=== PATIENT | female | born 1945 | race Native Hawaiian/Other Pacific Islander ===

== ENCOUNTER 2016-09-23 11:39 | Outpatient (CLI) | payer OTHER ==
[2016-09-23 12:24] LABS: PLATELET COUNT 256 K/uL (152-353)
[2016-09-23 12:43] LABS: POTASSIUM 4.2 mmol/L (3.6-5.2)
== END 2016-09-23 19:16 | disposition home or self-care (01) ==
LOC: LAB 11:39
PROVIDERS: Specialist
DX: I10 Essential (primary) hypertension (principal); E03.8 Other specified hypothyroidism; K21.9 Gastro-esophageal reflux disease without esophagitis; E78.4 Other hyperlipidemia
CPT/HCPCS: 80053; 80061; 84439; 84443; 85027

== ENCOUNTER 2017-05-12 10:50 | Outpatient (CLI) | payer OTHER ==
[2017-05-12 11:12] LABS: PLATELET COUNT 264 K/uL (152-353)
[2017-05-12 11:37] LABS: POTASSIUM 3.4 mmol/L (3.6-5.2)
== END 2017-05-12 11:50 | disposition home or self-care (01) ==
LOC: LAB 10:50
PROVIDERS: General Practice
DX: K21.9 Gastro-esophageal reflux disease without esophagitis (principal); E03.8 Other specified hypothyroidism; I10 Essential (primary) hypertension; E55.9 Vitamin D deficiency, unspecified; E56.8 Deficiency of other vitamins; E78.4 Other hyperlipidemia
CPT/HCPCS: 80053; 80061; 82652; 84439; 84443; 85027

== ENCOUNTER 2017-11-18 10:46 | Outpatient (CLI) | payer OTHER ==
[2017-11-18 11:10] LABS: PLATELET COUNT 280 K/uL (152-353)
[2017-11-18 11:36] LABS: POTASSIUM 3.9 mmol/L (3.6-5.2)
== END 2017-11-18 21:47 | disposition home or self-care (01) ==
LOC: LAB 10:46
PROVIDERS: Specialist
DX: I10 Essential (primary) hypertension (principal); E03.8 Other specified hypothyroidism; R53.83 Other fatigue; E78.4 Other hyperlipidemia
CPT/HCPCS: 80053; 80061; 84439; 84443; 85027

== ENCOUNTER 2018-06-22 10:46 | Outpatient (CLI) | payer OTHER ==
[2018-06-22 11:02] LABS: PLATELET COUNT 254 K/uL (152-353)
[2018-06-22 11:03] LABS: POTASSIUM 3.8 mmol/L (3.6-5.2)
== END 2018-06-22 22:42 | disposition home or self-care (01) ==
LOC: LAB 10:46
PROVIDERS: General Practice
DX: I10 Essential (primary) hypertension (principal); E03.8 Other specified hypothyroidism; K21.9 Gastro-esophageal reflux disease without esophagitis
CPT/HCPCS: 80053; 80061; 84439; 84443; 85027

== ENCOUNTER 2018-07-10 11:42 | Emergency (ER) | payer OTHER ==
[~2018-07-10] VITALS: Ht 162.6 cm; Wt 95.3 kg
[2018-07-10 11:50] VITALS: TEMP 97.3
[2018-07-10] MEDS ORDERED: NIFE30TA PO (12:00)
[2018-07-10] MEDS ORDERED: LYRICA50 MG PO (12:00)
[2018-07-10] MEDS ORDERED: BUPR150T PO (12:01)
[2018-07-10 13:22] VITALS: BP 148/70
== END 2018-07-10 13:22 | disposition home or self-care (01) ==
LOC: ED 11:42
DX: M79.671 Pain in right foot (principal); W10.8XXA Fall (on) (from) other stairs and steps, initial encounter; Y92.89 Other specified places as the place of occurrence of the external cause
CPT/HCPCS: 99282

== ENCOUNTER 2018-10-12 14:11 | Outpatient (CLI) | payer OTHER ==
[~2018-10-12 14:11] MED LIST: BUPR150T PO; LYRICA50 MG PO; NIFE30TA PO
== END 2018-10-12 20:46 | disposition home or self-care (01) ==
LOC: LAB 14:11
DX: K64.0 First degree hemorrhoids (principal)
CPT/HCPCS: 82272

== ENCOUNTER 2018-12-14 15:27 | Outpatient (CLI) | payer OTHER | END 2018-12-14 21:09 | disposition home or self-care (01) | LOC: LAB 15:27 | DX: N39.0 Urinary tract infection, site not specified (principal) | CPT/HCPCS: 81000; 87086; 87088 ==

== ENCOUNTER 2018-12-21 10:50 | Outpatient (CLI) | payer OTHER ==
[2018-12-21 11:40] LABS: PLATELET COUNT 230 K/uL (152-353)
[2018-12-21 12:42] LABS: POTASSIUM 4.1 mmol/L (3.6-5.2)
== END 2018-12-21 23:46 | disposition home or self-care (01) ==
LOC: LAB 10:50
PROVIDERS: General Practice
DX: I10 Essential (primary) hypertension (principal); K21.9 Gastro-esophageal reflux disease without esophagitis; M79.7 Fibromyalgia
CPT/HCPCS: 80053; 80061; 84439; 84443; 85027

== ENCOUNTER 2019-02-04 21:40 | Outpatient (CLI) | payer OTHER | END 2019-02-04 21:43 | disposition short-term general hospital (02) | LOC: AMB 21:40 | DX: R22.43 Localized swelling, mass and lump, lower limb, bilateral (principal); R53.1 Weakness; W18.39XA Other fall on same level, initial encounter; Y92.321 Football field as the place of occurrence of the external cause | CPT/HCPCS: A0425; A0429 ==

== ENCOUNTER 2019-02-04 21:53 | Emergency (ER) | payer OTHER ==
[~2019-02-04] VITALS: Ht 162.6 cm; Wt 95.3 kg
[2019-02-04 21:53] VITALS: TEMP 99
[2019-02-04 23:03] VITALS: BP 152/74
== END 2019-02-04 23:05 | disposition home or self-care (01) ==
LOC: ED 21:53
PROC: 2W3DX1Z Immobilization of Left Lower Arm using Splint (ICD-10-PCS; principal; 2019-02-04)
DX: S52.592A Other fractures of lower end of left radius, initial encounter for closed fracture (principal); S09.8XXA Other specified injuries of head, initial encounter; W03.XXXA Other fall on same level due to collision with another person, initial encounter; Y92.39 Other specified sports and athletic area as the place of occurrence of the external cause
CPT/HCPCS: 99283

== ENCOUNTER 2019-08-31 08:37 | Outpatient (CLI) | payer OTHER ==
[2019-08-31 09:38] LABS: POTASSIUM 4.4 mmol/L (3.6-5.2)
[2019-08-31 09:45] LABS: PLATELET COUNT 287 K/uL (152-353)
== END 2019-08-31 19:27 | disposition home or self-care (01) ==
LOC: LAB 08:37
PROVIDERS: General Practice
DX: I10 Essential (primary) hypertension (principal); E03.8 Other specified hypothyroidism; K21.9 Gastro-esophageal reflux disease without esophagitis; E78.2 Mixed hyperlipidemia
CPT/HCPCS: 36415; 80053; 80061; 84439; 84443; 85027

== ENCOUNTER 2019-11-09 11:46 | Outpatient (CLI) | payer OTHER | END 2019-11-09 19:26 | disposition home or self-care (01) | LOC: LAB 11:46 | DX: E03.8 Other specified hypothyroidism (principal) | CPT/HCPCS: 84439; 84443 ==

== ENCOUNTER 2020-03-27 09:49 | Outpatient (CLI) | payer OTHER ==
[2020-03-27 11:03] LABS: PLATELET COUNT 264 K/uL (152-353)
[2020-03-27 11:22] LABS: POTASSIUM 4.4 mmol/L (3.6-5.2)
== END 2020-03-27 20:36 | disposition home or self-care (01) ==
LOC: LAB 09:49
PROVIDERS: Specialist
DX: I10 Essential (primary) hypertension (principal); E03.8 Other specified hypothyroidism; K21.9 Gastro-esophageal reflux disease without esophagitis; E78.2 Mixed hyperlipidemia
CPT/HCPCS: 80053; 80061; 84439; 84443; 85027

== ENCOUNTER 2020-08-22 19:20 | Emergency (ER) | payer OTHER ==
[~2020-08-22] VITALS: Ht 162.6 cm; Wt 103.4 kg
[2020-08-22 20:26] LABS: PLATELET COUNT 225 K/uL (152-353)
[2020-08-22 20:42] LABS: PARTIAL THROMBOPLASTIN TIME 22.6 SECONDS (24.5-33.6)
[2020-08-22 21:41] VITALS: BP 140/50; TEMP 97.9
== END 2020-08-22 21:41 | disposition home or self-care (01) ==
LOC: ED 19:42
PROVIDERS: Family Medicine
DX: G58.8 Other specified mononeuropathies (principal); Z86.73 Personal history of transient ischemic attack (TIA), and cerebral infarction without residual deficits
CPT/HCPCS: 80053; 81000; 85027; 85610; 85730; 99283

== ENCOUNTER 2020-10-16 10:25 | Outpatient (CLI) | payer OTHER | END 2020-10-16 20:57 | disposition home or self-care (01) | LOC: LAB 10:25 | PROVIDERS: ATTEND Psychiatry & Neurology Neurology | DX: R41.3 Other amnesia (principal); M79.7 Fibromyalgia; E78.2 Mixed hyperlipidemia | CPT/HCPCS: 80061; 82607; 82746; 84439; 84443; 85652; 86038 ==

== ENCOUNTER 2021-11-20 09:57 | Outpatient (CLI) | payer OTHER ==
[2021-11-20 10:46] LABS: PLATELET COUNT 254 K/uL (152-353)
[2021-11-20 10:51] LABS: POTASSIUM 4.1 mmol/L (3.6-5.2)
== END 2021-11-20 19:38 | disposition home or self-care (01) ==
LOC: RAD 09:57
PROVIDERS: ATTEND General Practice
DX: M81.0 Age-related osteoporosis without current pathological fracture (principal); Z78.0 Asymptomatic menopausal state; I10 Essential (primary) hypertension; E03.8 Other specified hypothyroidism; K21.9 Gastro-esophageal reflux disease without esophagitis; E78.2 Mixed hyperlipidemia
CPT/HCPCS: 36415; 80053; 80061; 84439; 84443; 85027

== ENCOUNTER 2022-09-15 08:38 | Outpatient (CLI) | payer OTHER ==
[2022-09-15 09:07] LABS: PLATELET COUNT 283 K/uL (152-353)
[2022-09-15 09:33] LABS: POTASSIUM 3.9 mmol/L (3.6-5.2)
== END 2022-09-15 19:05 | disposition home or self-care (01) ==
LOC: LABW 08:38
PROVIDERS: ATTEND General Practice
DX: I10 Essential (primary) hypertension (principal); E78.2 Mixed hyperlipidemia; E03.8 Other specified hypothyroidism; J45.998 Other asthma; R63.5 Abnormal weight gain; Z79.899 Other long term (current) drug therapy
CPT/HCPCS: 36415; 80053; 80061; 82570; 83036; 84156; 84439; 84443; 85027

== ENCOUNTER 2022-11-05 13:56 | Inpatient (IN) | payer OTHER | END 2022-11-12 14:21 | disposition still patient (30) | LOC: PAVB 13:56 | PROVIDERS: ADMIT Internal Medicine Endocrinology, Diabetes & Metabolism; ATTEND Internal Medicine Endocrinology, Diabetes & Metabolism | DX: S72.145D Nondisplaced intertrochanteric fracture of left femur, subsequent encounter for closed fracture with routine healing (principal); S32.019D Unspecified fracture of first lumbar vertebra, subsequent encounter for fracture with routine healing; R26.81 Unsteadiness on feet; R26.2 Difficulty in walking, not elsewhere classified; Z74.1 Need for assistance with personal care | CPT/HCPCS: 87081 ==

== ENCOUNTER 2023-03-06 09:14 | Outpatient (CLI) | payer OTHER ==
[2023-03-06 09:32] LABS: PLATELET COUNT 262 K/uL (152-353)
[2023-03-06 10:08] LABS: POTASSIUM 4.5 mmol/L (3.6-5.2)
== END 2023-03-06 20:49 | disposition home or self-care (01) ==
LOC: LABW 09:14
PROVIDERS: ATTEND General Practice
DX: I10 Essential (primary) hypertension (principal); K21.9 Gastro-esophageal reflux disease without esophagitis; E03.8 Other specified hypothyroidism; E78.2 Mixed hyperlipidemia
CPT/HCPCS: 36415; 80053; 80061; 84436; 84439; 84443; 84479; 85027